=== PATIENT | male | born 1980 | race Caucasian/White ===

== ENCOUNTER 2019-12-08 17:28 | Emergency (ER) | payer MEDICAID ==
[~2019-12-08] VITALS: Ht 182.9 cm; Wt 97.5 kg
[2019-12-08 17:33] VITALS: Ht 182.9 cm; Wt 97.5 kg
[2019-12-08 18:41] LABS: BASOPHIL % 0.5 % (0-2); PLATELET COUNT 164 x10^3mcL (130-400); RED CELL DISTRIBUTION WIDTH 13.1 % (11.5-14.5)
[2019-12-08 18:58] LABS: CALCIUM 8.1 mg/dL (8.5-10.1); CARBON DIOXIDE 24.9 mmol/L (21-32); CHLORIDE SERUM 107 mmol/L (98-107); CREATININE SERUM 1.2 mg/dL (0.7-1.3); GFR1 > 60 mL/min; GLUCOSE SERUM 89 mg/dL (74-106); POTASSIUM SERUM 3.1 mmol/L (3.5-5.1); SODIUM SERUM 144 mmol/L (136-145)
[2019-12-08 19:02] LABS: ALBUMIN 3.4 g/dL (3.4-5.0); ALKALINE PHOSPHATASE 34 U/L (46-116); ALT/SGPT 28 U/L (16-63); AST/SGOT 18 U/L (15-37); BILIRUBIN TOTAL 0.7 mg/dL (0.20-1.00); TOTAL PROTEIN, SERUM 6.3 g/dL (6.4-8.2)
[2019-12-08 21:53] VITALS: BP 115/71
== END 2019-12-08 21:53 | disposition home or self-care (01) ==
LOC: ED 17:28
PROVIDERS: Emergency Medicine
DX: R11.10 Vomiting, unspecified (principal); T40.1X1A Poisoning by heroin, accidental (unintentional), initial encounter; Y92.89 Other specified places as the place of occurrence of the external cause
CPT/HCPCS: G0480; J2310; J2405; J7030

== ENCOUNTER 2020-06-16 03:02 | Inpatient (IN) | payer OTHER ==
[~2020-06-16] VITALS: Ht 182.9 cm; Wt 90.7 kg
[2020-06-16 03:05] VITALS: Ht 182.9 cm; Wt 90.7 kg
[2020-06-16 03:45] LABS: BASOPHIL % 0.5 % (0-2); PLATELET COUNT 233 x10^3mcL (130-400); RED CELL DISTRIBUTION WIDTH 11.8 % (11.5-14.5)
[2020-06-16 04:12] LABS: CALCIUM 8.8 mg/dL (8.5-10.1); CARBON DIOXIDE 25.7 mmol/L (21-32); CHLORIDE SERUM 104 mmol/L (98-107); CREATININE SERUM 1.3 mg/dL (0.7-1.3); GFR1 > 60 mL/min; GLUCOSE SERUM 185 mg/dL (74-106); POTASSIUM SERUM 3.5 mmol/L (3.5-5.1); SODIUM SERUM 140 mmol/L (136-145)
[2020-06-16 04:16] LABS: ALBUMIN 3.9 g/dL (3.4-5.0); ALKALINE PHOSPHATASE 46 U/L (46-116); ALT/SGPT 46 U/L (16-63); AST/SGOT 42 U/L (15-37); BILIRUBIN TOTAL 0.51 mg/dL (0.20-1.00); TOTAL PROTEIN, SERUM 7.4 g/dL (6.4-8.2)
[2020-06-16 08:27] VITALS: BP 122/67
[2020-06-16 10:46] VITALS: BP 125/79
[2020-06-16 12:24] VITALS: BP 91/64
[2020-06-16 17:49] VITALS: BP 108/61
[2020-06-16 21:09] VITALS: BP 118/71
[2020-06-17 05:20] VITALS: BP 122/64
[2020-06-17 06:36] LABS: CALCIUM 7.8 mg/dL (8.5-10.1); CARBON DIOXIDE 33.3 mmol/L (21-32); CREATININE SERUM 1.4 mg/dL (0.7-1.3); POTASSIUM SERUM 3.7 mmol/L (3.5-5.1)
[2020-06-17 06:54] LABS: BASOPHIL % 0.5 % (0-2); PLATELET COUNT 214 x10^3mcL (130-400)
[2020-06-17 08:19] VITALS: BP 125/70
[2020-06-17 12:01] VITALS: BP 112/68
[2020-06-17 12:58] VITALS: BP 112/68
== END 2020-06-17 13:38 | disposition home or self-care (01) | DRG 816 ==
LOC: ED 03:02 → DU 05:32
PROVIDERS: Emergency Medicine; ADMIT Internal Medicine; ATTEND Internal Medicine
PROC: 0HQ0XZZ Repair Scalp Skin, External Approach (ICD-10-PCS; principal; 2020-06-16)
DX: T40.1X1A Poisoning by heroin, accidental (unintentional), initial encounter (principal); J69.0 Pneumonitis due to inhalation of food and vomit; Y92.89 Other specified places as the place of occurrence of the external cause
CPT/HCPCS: 36600; G0378; G0480; J2060; J2543; J3490; J7042; Q0092